=== PATIENT | male | born 1935 | race Caucasian/White ===

== ENCOUNTER 2016-08-08 12:28 | Day surgery (SDC) | payer MEDICARE ==
[~2016-08-08 12:28] MED LIST: CEFAZOLIN SODIUM 2 GRAM PREMIX 100 ML IV ONE; CEFAZOLIN SODIUM 2 GRAM PREMIX 100 ML IV PRN; FENTANYL 100 MCG/2 ML VIAL ONE; IV START KIT ONE; LACTATED RINGERS 1,000 ML ONE; MIDAZOLAM HCL 1 MG/ML 2ML VIAL ONE
[2016-08-08] MEDS ORDERED: ROCURONIUM BROMIDE 10 MG/ML DOSE IV ONE ×4 (12:36)
[2016-08-08] MEDS ORDERED: LIDOCAINE 1% (PRES FREE) 30 ML VIAL ONE ×2 (13:10→13:38)
[2016-08-08] MEDS ORDERED: MINERAL OIL 25 ML BOT ONE ×2 (13:10→13:38)
[2016-08-08 13:17] LABS: HEMATOCRIT 37.7 % (32.0-52.0); HEMOGLOBIN 12.2 gm/l (14.0-18.0); MEAN CELL VOLUME 88.9 fl (80.0-94.0); MEAN CORPUSCULAR HEMOGLOBIN 28.8 pg (27.0-31.0); MEAN CORPUSCULAR HGB CONC 32.4 g/dl (33.0-37.0); RED CELL DISTRIBUTION WIDTH 14.6 % (11.5-14.5)
[2016-08-08] MEDS ORDERED: PROPOFOL 20 ML IV ONE ×2 (13:48→16:53)
[2016-08-08 13:57] LABS: ALB/GLOB RATIO 1.4 (>1.0); ALBUMIN 3.9 gm/dL (3.5-5.7); CALCIUM 9.3 mg/dL (8.6-10.3)
[2016-08-08] MEDS ORDERED: FENTANYL 100 MCG/2 ML VIAL ONE (16:06)
[2016-08-08] MEDS ORDERED: METOCLOPRAMIDE HCL 5 MG/ML 2ML VIAL ONE (16:25)
[2016-08-08] MEDS ORDERED: ONDANSETRON 4 MG/2ML 2 ML VIAL ONE (16:26)
[2016-08-08] MEDS ORDERED: EPHEDRINE SULFATE UD SYR 25 MG 25 MG/5 ML SYRINGE IV ONE (16:40)
[2016-08-08] MEDS ORDERED: MEPERIDINE 25 MG/ML SYRINGE IV PRN (17:19)
[2016-08-08] MEDS ORDERED: PROMETHAZINE HCL 25 MG/ML VIAL IM PRN ×2 (17:19→22:30)
[2016-08-08] MEDS ORDERED: HYDRALAZINE HCL 20 MG/1 ML VIAL IV PRN (17:19)
[2016-08-08] MEDS ORDERED: NALOXONE HCL 0.4 MG/ML VIAL IV PRN (17:19)
[2016-08-08] MEDS ORDERED: ATROPINE SULFATE 0.4 MG/1 ML VIAL IV PRN (17:19)
[2016-08-08] MEDS ORDERED: ONDANSETRON 4 MG/2ML 2 ML VIAL IV PRN ×2 (17:19→17:48)
[2016-08-08] MEDS ORDERED: LACTATED RINGERS 1,000 ML IV SCH (17:30)
[2016-08-08] MEDS ORDERED: MORPHINE SULFATE 4 MG/ML SYRINGE ONE (17:32)
[2016-08-08] MEDS: MORPHINE SULFATE 4 MG/ML SYRINGE IV PRN ×2 (17:34→17:39)
[2016-08-08] MEDS ORDERED: HYDROMORPHONE HCL 1 MG/ML SYRINGE IV PRN (17:48)
[2016-08-08] MEDS ORDERED: OXYCODONE HCL 5 MG TABLET PO PRN (17:48)
[2016-08-08] MEDS ORDERED: KETOROLAC TROMETHAMINE 15 MG/ML VIAL IV PRN (17:48)
[2016-08-08 18:36] VITALS: BMI 33.9
[2016-08-08] MEDS ORDERED: SODIUM CHLORIDE 0.9% FLUSH 10 ML ONE (18:40)
[2016-08-08 19:21] VITALS: BP 148/70
--- NOTE | 2016-08-09 09:11 | OP ---
BOWEN MEADOWS [id number] DATE OF OPERATION: August 08, 2016 PREOPERATIVE DIAGNOSIS: Wound abdomen following excision of seroma cavity with biologic mesh placement. POSTOPERATIVE DIAGNOSIS: Wound abdomen following excision of seroma cavity with biologic mesh placement. PROCEDURE: SPLIT THICKNESS SKIN GRAFT FROM RIGHT THIGH TO ABDOMINAL WOUND. SURGEON: Adolph Baca M.D. LAUNCH MANAGER: Antonia Stovall ANESTHESIA: Horacio PinedaNTali, general anesthesia. INDICATIONS: This is an 81-year-old male who has a long history of complicated wound following ventral hernia repair with component separation. 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 Approximately three months ago I excised the seroma cavities and healed this from the inside out using a wound VAC. I did place a piece of biologic mesh. He had developed significant granulation tissue on top of the biologic mesh and has a mid line wound that measures about 8 x 5 cm. DESCRIPTION: With informed he was taken to the operating room where he was placed supine on the operating room table. General anesthesia was administered. The right thigh and abdomen were prepped and draped in a sterile fashion. Using a Dermatome at a thickness of 0.015 mm, I removed a skin graft from the right thigh which was held taught and lubricated with mineral oil. Specimen was placed on a metal engel and pie crusted with a #15 blade knife. A piece of Xeroform gauze was placed over the donor site and held in place. The recipient site was debrided using gauze to elicit an inflammatory reaction without active bleeding. The graft was placed on the wound bed. It was secured first in a cruciate fashion on the lateral edges and also superior and inferior. After doing that, I cut away some of the graft to conform from a triangular harvest skin to the javier shaped wound. It was secured in multiple points with #3-0 nylon, making sure that it was taut but not tight. I then placed the dressing of a wound VAC on the anterior skin allowing it to fall down on the skin edges of the wound. I placed a piece of white foam directly on to the graft and cut that to the appropriate size. VAC dressings were placed over that. A small defect was created through the dressings to access the foam. The nipple was placed. This was hooked to a wound VAC. We had good seal. To the donor harvest site there was some mild oozing. We did put some Telfa and occlusive dressings on that. He tolerated the procedure and was taken back to the recovery room in stable condition. Note was made the needle, instrument and lap counts were reported as correct at time of closure. He will follow up with me in five days for VAC removal and evaluation of his graft. Cc: Yamil Stubbs D.O.
== END 2016-08-08 19:55 | disposition home or self-care (01) ==
LOC: SDC 12:28
PROVIDERS: ATTEND Surgery
PROC: 0HR7X74 Replacement of Abdomen Skin with Autologous Tissue Substitute, Partial Thickness, External Approach (ICD-10-PCS; principal; 2016-08-08)
DX: T81.89XA Other complications of procedures, not elsewhere classified, initial encounter (principal); I10 Essential (primary) hypertension; I25.10 Atherosclerotic heart disease of native coronary artery without angina pectoris; K21.9 Gastro-esophageal reflux disease without esophagitis; E78.5 Hyperlipidemia, unspecified; Z79.899 Other long term (current) drug therapy; Z87.891 Personal history of nicotine dependence